=== PATIENT | male | born 1985 | race Caucasian/White ===

== ENCOUNTER 2018-02-11 20:31 | Emergency (ER) | payer OTHER ==
[2018-02-11 21:01] VITALS: BP 123/71; PULSE 75; RESP 20; TEMP 98.4
[2018-02-11] MEDS ORDERED: DIPH,PERTUS(ACELL)TETVAC-LF 0.5 ML VIAL IM ONE (21:03)
[2018-02-11] MEDS ORDERED: LIDOCAINE 1% INJ 10MG/ML (20 ML MDV) SQ STA (21:26)
--- NOTE | 2018-02-11 21:30 | ED ---
General Adult HPI - General Chief complaint: Wound/Laceration Stated complaint: mouth injury-[facility] Time Seen by Provider: 02/11/18 21:21 Source: patient, RN notes reviewed Mode of arrival: ambulatory Limitations: no limitations - History of Present Illness Initial comments: Patient's a 32-year-old male presenting to the emergency room today with chief complaint of a laceration that occurred at work. 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 Patient states he believes it was a tooth as he can stick his tongue through part of the lack. Patient states tetanus is not up-to-date. Patient denies any other complaints or symptoms. Patient denies any recent fever , chills, shortness of breath, chest pain, back pain, abdominal pain, nausea or vomiting, numbness or tingling, headaches or visual changes, or any other complaints. - Related Data Home Medications Medication Instructions Recorded Confirmed No Known Home Medications 02/11/18 02/11/18 Allergies Allergy/AdvReac Type Severity Reaction Status Date / Time No Known Allergies Allergy Verified 02/11/18 21:09 Review of Systems ROS Statement: Those systems with pertinent positive or pertinent negative responses have been documented in the HPI. ROS Other: All systems not noted in ROS Statement are negative. Past Medical History Past Medical History: No Reported History History of Any Multi-Drug Resistant Organisms: None Reported Past Surgical History: Appendectomy Past Psychological History: No Psychological Hx Reported Smoking Status: Current every day smoker Past Alcohol Use History: None Reported Past Drug Use History: None Reported General Exam - General Exam Comments Initial Comments: General: The patient is awake and alert, in no distress, and does not appear acutely ill. Eye: Pupils are equal, round and reactive to light, extra-ocular movements are intact. No nystagmus. There is normal conjunctiva bilaterally. No signs of icterus. Ears, nose, mouth and throat: There are moist mucous membranes and no oral lesions. Small laceration horizontally inside the left side of lower lip. Neck: The neck is supple, there is no tenderness or JVD. Musculoskeletal: Normal ROM, no tenderness. Strength 5/5. Sensation intact. Pulses equal bilaterally 2+. Neurological: A&O x 3. CN II-XII intact, There are no obvious motor or sensory deficits. Coordination appears grossly intact. Speech is normal. Skin: 0.5 cm laceration underneath the left lip. Psychiatric: Cooperative, appropriate mood & affect, normal judgment. Limitations: no limitations Course Vital Signs 02/11/18 20:58 Temperature 98.4 F Pulse Rate 75 Respiratory 20 Rate Blood Pressure 123/71 O2 Sat by Pulse 98 Oximetry Procedures - Procedures Initial comment: 0.5 cm laceration underneath the left side of the lip. The skin was anesthetized with 1% lidocaine. The laceration was then cleansed with and irrigated with normal saline. The wound was inspected, and there was no evidence of injury to deep structures. No foreign body was noted in the wound. A total of 2 skin sutures were placed utilizing 5-0 nylon. Medical Decision Making - Medical Decision Making Patient's tetanus updated. Patient does have a laceration that goes through the bottom of the lower lip. Patient will be given antibiotics prophylactically. Patient had 2 stitches placed here in the emergency room. Patient will be discharged home. Disposition Clinical Impression: Laceration Disposition: HOME SELF-CARE Condition: Good Instructions: Laceration (ED) Additional Instructions: Please return to the emergency room in 5 days to have sutures removed. Please watch for any signs of infection which may include increased pain, swelling, redness, fever or chills. Please return to emergency room for any signs of infection do occur. Please use clean soap and water over the area to prevent scabbing over your stitches. Please leave wound open to air. Please return to the emergency room for any other concerns. Is patient prescribed a controlled substance at d/c from ED?: No Referrals: None,Stated [Primary Care Provider] - 1-2 days Time of Disposition: 21:30
== END 2018-02-11 22:11 | disposition home or self-care (01) ==
LOC: EC 20:31
DX: S01.511A Laceration without foreign body of lip, initial encounter (principal); F17.200 Nicotine dependence, unspecified, uncomplicated; Z23 Encounter for immunization; W22.8XXA Striking against or struck by other objects, initial encounter; Y92.69 Other specified industrial and construction area as the place of occurrence of the external cause; Y99.0 Civilian activity done for income or pay
CPT/HCPCS: 90715; 99283; 12011; 90471; J2001

== ENCOUNTER 2019-09-01 08:26 | Emergency (ER) | payer OTHER ==
[2019-09-01 08:31] VITALS: BP 117/73; PULSE 71; RESP 18; TEMP 97.7
--- NOTE | 2019-09-01 08:42 | ED ---
ENT HPI - General Chief complaint: ENT Stated complaint: Cyst on ear Time Seen by Provider: 09/01/19 08:35 Source: patient, RN notes reviewed Mode of arrival: ambulatory Limitations: no limitations - History of Present Illness Initial comments: This a 34-year-old male presents emergency Department chief complaint of redness, swelling to his left ear. Patient states he's had this in the past states that he squeezed it yesterday and a bunch of pus came out but states now more swollen, painful. No fevers or chills he did notice a lymph node inferior to his left ear. Patient reports some neck pain, neck stiffness no fevers or chills. - Related Data Previous Rx's Medication Instructions Recorded Cephalexin [Keflex] 500 mg PO Q12HR 5 Days cap 02/11/18 Cephalexin [Keflex] 500 mg PO Q6HR #28 cap 09/01/19 Sulfamethox-Tmp 800-160Mg [Bactrim 1 each PO Q12HR #14 tab 09/01/19 Ds] Allergies Allergy/AdvReac Type Severity Reaction Status Date / Time No Known Allergies Allergy Verified 09/01/19 08:31 Review of Systems ROS Statement: Those systems with pertinent positive or pertinent negative responses have been documented in the HPI. ROS Other: All systems not noted in ROS Statement are negative. Past Medical History Past Medical History: No Reported History History of Any Multi-Drug Resistant Organisms: None Reported Past Surgical History: Appendectomy Past Psychological History: No Psychological Hx Reported Smoking Status: Current every day smoker Past Alcohol Use History: Occasional Past Drug Use History: Marijuana General Exam Limitations: no limitations General appearance: alert, in no apparent distress Head exam: Present: atraumatic, normocephalic, normal inspection Eye exam: Present: normal appearance, PERRL, EOMI. Absent: scleral icterus, conjunctival injection, periorbital swelling ENT exam: Present: normal oropharynx, mucous membranes moist, TM's normal bilaterally. Absent: normal exam, normal external ear exam (Patient's left year there is noted area of swelling approximately 1 cm, tenderness with palpation there is small amount of drainage noted there is palpable lymph nodes inferior to the left ear) Neck exam: Present: normal inspection, lymphadenopathy. Absent: tenderness, meningismus, full ROM Respiratory exam: Present: normal lung sounds bilaterally. Absent: respiratory distress, wheezes, rales, rhonchi, stridor Cardiovascular Exam: Present: regular rate, normal rhythm, normal heart sounds. Absent: systolic murmur, diastolic murmur, rubs, gallop, clicks Course Vital Signs 09/01/19 08:27 Temperature 97.7 F Pulse Rate 71 Respiratory 18 Rate Blood Pressure 117/73 O2 Sat by Pulse 98 Oximetry Medical Decision Making - Medical Decision Making Patient noted to have sialitis, small abscess to left anterior patient was placed on antibiotics at this time patient advised to apply warm compresses, return for any worsening or change symptoms. Disposition Clinical Impression: Abscess of left earlobe Disposition: HOME SELF-CARE Condition: Stable Instructions (If sedation given, give patient instructions): Abscess (ED) Additional Instructions: Please return to the Emergency Department if symptoms worsen or any other concerns. Prescriptions: Sulfamethox-Tmp 800-160Mg [Bactrim Ds] 1 each PO Q12HR #14 tab Cephalexin [Keflex] 500 mg PO Q6HR #28 cap Is patient prescribed a controlled substance at d/c from ED?: No Referrals: None,Stated [Primary Care Provider] - 1-2 days Time of Disposition: 08:42
== END 2019-09-01 08:50 | disposition home or self-care (01) ==
LOC: EC 08:26
DX: H60.02 Abscess of left external ear (principal); F17.200 Nicotine dependence, unspecified, uncomplicated; K11.20 Sialoadenitis, unspecified
CPT/HCPCS: 99282

== ENCOUNTER 2021-06-14 04:40 | Emergency (ER) | payer OTHER ==
--- NOTE | 2021-06-14 04:48 | ED ---
Eye Problem HPI - General Stated complaint: [facility] - Object in eye Time Seen by Provider: 06/14/21 04:45 Source: RN notes reviewed, old records reviewed Mode of arrival: ambulatory Limitations: no limitations - History of Present Illness Initial comments: Is a 36-year-old male DF for evaluation as he may have known foreign body unsure what kind in his right eye all at work prior to arrival. Patient did have something get into his eye and then had sudden onset of right eye pain at work. 6 patient did try to rent is had significant tearing from that eye no change of vision no other complaints MD chief complaint: eye pain -: hour(s) Onset Description: sudden Location: right eye Place: work If Injury: none Eye Symptoms: burning, redness, photophobia Severity: severe Severity scale (1-10): 8 If Pain, Quality: stabbing Consistency: constant Context: trauma, injury Associated Symptoms: none Treatments Prior to Arrival: none - Related Data Previous Rx's Medication Instructions Recorded Cephalexin [Keflex] 500 mg PO Q12HR 5 Days cap 02/11/18 Cephalexin [Keflex] 500 mg PO Q6HR #28 cap 09/01/19 Sulfamethox-Tmp 800-160Mg [Bactrim 1 each PO Q12HR #14 tab 09/01/19 Ds] Allergies Allergy/AdvReac Type Severity Reaction Status Date / Time No Known Allergies Allergy Verified 06/14/21 04:49 Review of Systems ROS Statement: Those systems with pertinent positive or pertinent negative responses have been documented in the HPI. ROS Other: All systems not noted in ROS Statement are negative. Past Medical History Past Medical History: No Reported History History of Any Multi-Drug Resistant Organisms: None Reported Past Surgical History: Appendectomy Past Psychological History: No Psychological Hx Reported Past Alcohol Use History: Occasional Past Drug Use History: Marijuana General Exam General appearance: alert, in no apparent distress Head exam: Present: atraumatic, normocephalic, normal inspection Eye exam: Present: normal appearance, PERRL, EOMI, other (Right eye for seen as well as was lap exam do show corneal abrasion). Absent: scleral icterus, conjunctival injection, periorbital swelling ENT exam: Present: normal exam, mucous membranes moist Neck exam: Present: normal inspection. Absent: tenderness, meningismus, lymphadenopathy Respiratory exam: Present: normal lung sounds bilaterally. Absent: respiratory distress, wheezes, rales, rhonchi, stridor Cardiovascular Exam: Present: regular rate, normal rhythm, normal heart sounds. Absent: systolic murmur, diastolic murmur, rubs, gallop, clicks GI/Abdominal exam: Present: soft, normal bowel sounds. Absent: distended, tenderness, guarding, rebound, rigid Extremities exam: Present: normal inspection, full ROM, normal capillary refill. Absent: tenderness, pedal edema, joint swelling, calf tenderness Back exam: Present: normal inspection Neurological exam: Present: alert, oriented X3, CN II-XII intact Psychiatric exam: Present: normal affect, normal mood Skin exam: Present: warm, dry, intact, normal color. Absent: rash Course Vital Signs 06/14/21 04:45 Temperature 97.3 F L Pulse Rate 92 Respiratory 118 H Rate Blood Pressure 122/77 O2 Sat by Pulse 96 Oximetry - Reevaluation(s) Reevaluation #1: 06/14/21 05:14 Medical record is reviewed Reevaluation #2: 06/14/21 05:14 Patient is informed results and questions answered Reevaluation #3: 06/14/21 05:14 Patient feels good for discharge home Medical Decision Making - Medical Decision Making 36 male to the emergency department for evaluation with right eye pain. Form body no foreign body currently but does have corneal abrasion, patient given Ativan transfer home and can be Disposition Clinical Impression: Right corneal abrasion Disposition: HOME SELF-CARE Condition: Good Instructions (If sedation given, give patient instructions): Corneal Abrasion (ED) Is patient prescribed a controlled substance at d/c from ED?: No Referrals: None,Stated [Primary Care Provider] - 1-2 days
[2021-06-14 04:49] VITALS: BP 122/77; PULSE 92; RESP 118; TEMP 97.3
[2021-06-14] MEDS ORDERED: FLUORESCEIN STRIPS 1 MG STRIP RIGHT EYE ONE (05:04)
[2021-06-14] MEDS ORDERED: TOBRAMYCIN 0.3% OPHTH DROPS 5 ML BTL RIGHT EYE STA (05:12)
[2021-06-14] MEDS ORDERED: PROPARACAINE 0.5% OPHTH DROPS 15 ML BTL RIGHT EYE STA (05:12)
== END 2021-06-14 05:33 | disposition home or self-care (01) ==
LOC: EC 04:40
DX: S05.01XA Injury of conjunctiva and corneal abrasion without foreign body, right eye, initial encounter (principal); F12.90 Cannabis use, unspecified, uncomplicated; Z90.49 Acquired absence of other specified parts of digestive tract; X58.XXXA Exposure to other specified factors, initial encounter
CPT/HCPCS: 99283